=== PATIENT | female | born 1995 | race African-American/Black ===

== ENCOUNTER 2017-10-26 19:19 | Emergency (ER) | payer SELFPAY | END 2017-10-26 20:30 | disposition left against medical advice (07) | LOC: ER 20:21 | DX: Z53.21 Procedure and treatment not carried out due to patient leaving prior to being seen by health care provider (principal) ==

== ENCOUNTER 2017-10-26 20:31 | Emergency (ER) | payer SELFPAY ==
[~2017-10-26] VITALS: Ht 172.7 cm; Wt 54.0 kg
[2017-10-26 20:37] VITALS: BP 120/70
== END 2017-10-26 22:30 | disposition left against medical advice (07) ==
LOC: ER 20:31
DX: Z53.21 Procedure and treatment not carried out due to patient leaving prior to being seen by health care provider (principal)

== ENCOUNTER 2021-02-18 09:42 | Emergency (ER) | payer MEDICAID ==
[~2021-02-18] VITALS: Ht 170.2 cm; Wt 64.0 kg
[2021-02-18 11:57] LABS: BASOPHILS % 0.7 % (0.0-2.0); HEMATOCRIT. 38.4 % (36.0-48.0); HEMOGLOBIN. 12.6 g/dL (12.0-16.0); LYMPHOCYTES % 38.5 % (20.0-50.0); MEAN CORPUSCULAR HEMOGLOBIN 28.9 pg (28.0-32.0); MEAN CORPUSCULAR VOLUME 88.2 fL (81.0-99.0); MEAN PLATELET VOLUME 8.2 fl (7.4-10.4); NEUTROPHILS % 48.8 % (40.0-76.0); PLATELET 225 x1000/uL (130-400); RED BLOOD CELL COUNT 4.36 mill/uL (4.2-5.4)
[2021-02-18 12:04] LABS: CHLORIDE 106 mEq/L (98-107)
[2021-02-18 12:09] LABS: ETHANOL BLOOD < 10 mg/dL
[2021-02-18 12:13] LABS: VALPROIC ACID <3.0 ug/mL ug/mL (50-100)
[2021-02-18] MEDS ORDERED: DIVALPROEX SODIUM 250MG ER TABLET PO ONE (13:15)
[2021-02-18 13:35] LABS: CLARITY URINE CLEAR (CLEAR); COLOR URINE YELLOW (YELLOW); KETONES URINE NEGATIVE (NEGATIVE); LEUKOCYTE ESTERASE URINE NEGATIVE (NEGATIVE); NITRITE URINE NEGATIVE (NEGATIVE); OCCULT BLOOD URINE NEGATIVE (NEGATIVE); PH URINE 5.5 (4.5-8.0); PROTEIN URINE NEGATIVE (NEGATIVE); SPECIFIC GRAVITY URINE 1.011 (1.005-1.030); UROBILINOGEN URINE 0.2 E.U./dL (0.2-1.0)
[2021-02-18 13:49] LABS: *BARBITURATES SCREEN URINE NEGATIVE (NEGATIVE); METHADONE URINE SCREEN NEGATIVE (NEGATIVE); OPIATES URINE SCREEN NEGATIVE (NEGATIVE)
[2021-02-18 13:50] LABS: *BENZODIAZEPINES SCREEN URINE NEGATIVE (NEGATIVE); *COCAINE SCREEN URINE NEGATIVE (NEGATIVE); PHENCYCLIDINE URINE SCREEN NEGATIVE (NEGATIVE)
[2021-02-18 13:54] LABS: *AMPHETAMINES SCREEN URINE PRESUMTIVE POSITIVE (NEGATIVE); CANNABINOID URINE SCREEN PRESUMTIVE POSITIVE (NEGATIVE)
[2021-02-18] MEDS ORDERED: DIVA500T3 MT (15:24)
[2021-02-18 16:00] VITALS: BP 110/68
== END 2021-02-18 16:43 | disposition home or self-care (01) ==
LOC: ER 09:42
DX: R56.9 Unspecified convulsions (principal); F15.10 Other stimulant abuse, uncomplicated; F19.10 Other psychoactive substance abuse, uncomplicated
CPT/HCPCS: 36415; 70450; 71045; 80053; 80165; 80305; 80320; 81003; 81025; 85025; 93005; 99285; Z7610; G0480

== ENCOUNTER 2021-07-30 06:15 | Emergency (ER) | payer MEDICAID ==
[~2021-07-30] VITALS: Ht 165.1 cm; Wt 65.0 kg
[~2021-07-30 06:15] MED LIST: DIVA500T3 MT
[2021-07-30 06:21] VITALS: BP 122/79
[2021-07-30 06:43] LABS: CHLORIDE 101 mEq/L (98-107)
[2021-07-30 06:47] LABS: BASOPHILS % 0.4 % (0.0-2.0); ETHANOL BLOOD < 10 mg/dL; HEMATOCRIT. 37.2 % (36.0-48.0); HEMOGLOBIN. 12.3 g/dL (12.0-16.0); LYMPHOCYTES % 32.4 % (20.0-50.0); MEAN CORPUSCULAR HEMOGLOBIN 28.8 pg (28.0-32.0); MEAN CORPUSCULAR VOLUME 86.9 fL (81.0-99.0); MEAN PLATELET VOLUME 8.6 fl (7.4-10.4); MONOCYTES % 6.6 % (2.0-8.0); NEUTROPHILS % 59.6 % (40.0-76.0); PLATELET 201 x1000/uL (130-400); RED BLOOD CELL COUNT 4.28 mill/uL (4.2-5.4); RED CELL DISTRIBUTION WIDTH 15.3 % (11.6-14.6)
[2021-07-30 06:54] LABS: VALPROIC ACID < 3.0 ug/mL (50-100)
[2021-07-30] MEDS ORDERED: VALP250C3 PO (07:52)
[2021-07-30] MEDS ORDERED: VALPROIC ACID 250MG CAPSULE PO ONE (08:00)
== END 2021-07-30 09:20 | disposition home or self-care (01) ==
LOC: ER 07:04
DX: R56.9 Unspecified convulsions (principal); F31.9 Bipolar disorder, unspecified
CPT/HCPCS: 36415; 80053; 80165; 80320; 85025; 99283; G0480